=== PATIENT | female | born 2000 | race Hispanic/Latino ===

== ENCOUNTER 2020-01-26 10:24 | Observation (INO) | payer OTHER, MEDICAID ==
[~2020-01-26] VITALS: Ht 162.6 cm; Wt 83.9 kg
== END 2020-01-26 13:35 | disposition home or self-care (01) ==
LOC: LDH 10:24
PROVIDERS: ADMIT Obstetrics & Gynecology; ATTEND Obstetrics & Gynecology
DX: O36.8130 Decreased fetal movements, third trimester, not applicable or unspecified (principal); Z3A.28 28 weeks gestation of pregnancy
CPT/HCPCS: 76819; G0378 ×2

== ENCOUNTER 2020-04-04 08:33 | Inpatient (IN) | payer OTHER, MEDICAID ==
[~2020-04-04] VITALS: Ht 162.6 cm; Wt 85.3 kg
[2020-04-04] MEDS ORDERED: LACTATED RINGERS 1000ML 1,000 ML IV PRN (09:20)
[2020-04-04] MEDS ORDERED: LACTATED RINGERS 500 ML 500 ML IV PRN (09:30)
[2020-04-04] MEDS ORDERED: LIDOCAINE HCL 1% 20 ML VIAL INJ SCH (09:30)
[2020-04-04] MEDS ORDERED: ROPIVACAINE 0.2% 100ML VIAL 100 ML EP SCH (09:30)
[2020-04-04] MEDS ORDERED: NALOXONE HCL 0.4 MG/1 ML ML IV PRN (09:30)
[2020-04-04] MEDS ORDERED: PROMETHAZINE HCL 25 MG/ML 1ML AMPULE IM PRN (09:30)
[2020-04-04] MEDS ORDERED: EPHEDRINE SULFATE 50 MG/ML AMPULE IVP PRN (09:30)
[2020-04-04] MEDS ORDERED: MEPERIDINE-PF 50 MG/ML SYG IVP PRN (09:30)
[2020-04-04] MEDS ORDERED: OXYTOCIN-LR 20 UNITS/1000 ML 1,000 ML IV SCH ×3 (09:30→13:00)
[2020-04-04] MEDS ORDERED: OXYTOCIN 10 USP UNITS/ML 20 UNIT in LACTATED RINGERS 1000ML 1,000 ML IV SCH (09:30)
[2020-04-04] MEDS ORDERED: MEPERIDINE-PF 50 MG/ML SYG ONE (09:33)
[2020-04-04 09:37] LABS: HEMATOCRIT 39.1 % (36-48); MEAN CORPUSCULAR HEMOGLOBIN 29.7 pg (27.0-33.0); MEAN CORPUSCULAR VOLUME 89.9 fL (80-100); RED BLOOD CELL COUNT(AUTO) 4.35 MIL/uL (4.00-5.50); RED CELL DISTRIBUTION WIDTH 12.8 % (11.0-15.5); WHITE BLOOD COUNT (AUTO) 15.9 K/uL (4.8-10.8)
[2020-04-04] MEDS ORDERED: FENTANYL CITRATE PF 50 MCG/1 ML 2ML VIAL ONE (09:58)
[2020-04-04] MEDS ORDERED: AMPICILLIN 2GM+NS 100ML 100 ML IV SCH (11:28)
[2020-04-04] MEDS ORDERED: AMPICILLIN 1GM+NS 50ML 50 ML IV SCH (11:30)
[2020-04-04] MEDS ORDERED: MEASLES/MUMPS/RUBELLA VACCINE, LIVE 0.5 ML/VIAL SQ PRN (13:00)
[2020-04-04] MEDS ORDERED: LANOLIN 30GM OINTMENT TP PRN (13:00)
[2020-04-04] MEDS ORDERED: ACETAMINOPHEN-CODEINE 300/30MG TAB PO PRN (13:00)
[2020-04-04] MEDS ORDERED: BENZOCAINE/LANOLIN/ALOE VERA 60 ML AEROSOL TP PRN (13:00)
[2020-04-04] MEDS ORDERED: WITCH HAZEL 1 PAD TP PRN (13:00)
[2020-04-04] MEDS ORDERED: DIPH,PERTUSS(ACELL),TET VAC/PF 0.5 ML VIAL IM PRN (13:00)
[2020-04-04] MEDS ORDERED: ACETAMINOPHEN 325 MG TAB PO PRN (13:00)
[2020-04-04 14:57] VITALS: BP 98/75
[2020-04-04] MEDS ORDERED: PREN-154 PO (15:05)
[2020-04-04 19:38] VITALS: BP 112/78
[2020-04-04] MEDS: DOCUSATE SODIUM 100 MG CAP PO SCH (20:31)
[2020-04-04] MEDS: IBUPROFEN 600 MG TABLET PO PRN (20:41)
[2020-04-04 23:28] VITALS: BP 111/58
[2020-04-05 03:29] VITALS: BP 106/64
[2020-04-05 07:18] LABS: HEPATITIS Bs ANTIGEN SCREEN P Negative (Negative)
[2020-04-05 07:34] LABS: HEMATOCRIT 33.5 % (36-48); MEAN CORPUSCULAR HEMOGLOBIN 29.3 pg (27.0-33.0); MEAN CORPUSCULAR HGB CONC 32.2 g/dL (32.0-36.0); RED BLOOD CELL COUNT(AUTO) 3.68 MIL/uL (4.00-5.50); RED CELL DISTRIBUTION WIDTH 13.1 % (11.0-15.5); WHITE BLOOD COUNT (AUTO) 13.7 K/uL (4.8-10.8)
[2020-04-05 08:06] VITALS: BP 119/80
[2020-04-05] MEDS: DOCUSATE SODIUM 100 MG CAP PO SCH (08:59)
[2020-04-05] MEDS: IBUPROFEN 600 MG TABLET PO PRN (09:00)
[2020-04-05 11:43] VITALS: BP 104/70
--- NOTE | 2020-04-05 12:45 | NUR ---
pt is discharged. verbal and written discharge instructions given, refer to discharge summary. informed of the follow up appointment, prescription given. informed to call the doctor for future concerns. pt voiced understanding to all things discussed. Addendum: 04/05/20 at 1303 by GAMALIEL KOHLER RN Amended: Links added.
--- NOTE | 2020-04-05 13:45 | NUR ---
pt is dismissed in stable condition, brought to private car via wheelchair. Addendum: 04/05/20 at 1458 by GAMALIEL KOHLER RN Amended: Links added.
== END 2020-04-05 13:45 | disposition home or self-care (01) | DRG 806 ==
LOC: EDH 08:33 → OBSVTOIN 08:34 → LDH 08:34 → WSH 14:55
PROVIDERS: ADMIT Obstetrics & Gynecology; ATTEND Obstetrics & Gynecology
PROC: 10E0XZZ Delivery of Products of Conception, External Approach (ICD-10-PCS; principal; 2020-04-04)
PROC: 3E0R3BZ Introduction of Anesthetic Agent into Spinal Canal, Percutaneous Approach (ICD-10-PCS; 2020-04-04)
PROC: 00HU33Z Insertion of Infusion Device into Spinal Canal, Percutaneous Approach (ICD-10-PCS; 2020-04-04)
PROC: 0UQMXZZ Repair Vulva, External Approach (ICD-10-PCS; 2020-04-04)
PROC: 0UQGXZZ Repair Vagina, External Approach (ICD-10-PCS; 2020-04-04)
PROC: 3E0234Z Introduction of Serum, Toxoid and Vaccine into Muscle, Percutaneous Approach (ICD-10-PCS; 2020-04-04)
PROC: 3E0134Z Introduction of Serum, Toxoid and Vaccine into Subcutaneous Tissue, Percutaneous Approach (ICD-10-PCS; 2020-04-04)
DX: O69.81X0 Labor and delivery complicated by cord around neck, without compression, not applicable or unspecified (principal); O71.4 Obstetric high vaginal laceration alone; Z37.0 Single live birth; Z3A.38 38 weeks gestation of pregnancy; Z23 Encounter for immunization; O71.82 Other specified trauma to perineum and vulva
CPT/HCPCS: 36415; 80053; 81001; 84550; 85025; 85027; 85384; 85610; 85730; 86592; 86850; 86900; 86901; 87340; 90715; A4314; A4606; G0378; J2175; J2590; J2795; J3010; J7120

== ENCOUNTER 2023-05-17 11:41 | Emergency (ER) | payer MEDICAID, OTHER ==
[~2023-05-17] VITALS: Ht 162.6 cm; Wt 81.6 kg
[2023-05-17 12:07] LABS: APPEARANCE,URINE CLEAR (CLEAR); BILIRUBIN,URINE NEGATIVE (NEGATIVE); COLOR,URINE YELLOW (YELLOW); GLUCOSE, URINE (UA) NEGATIVE (NEGATIVE); KETONES,URINE NEGATIVE (NEGATIVE); LEUKOCYTE ESTERASE ,URINE 500 Leu/uL (NEGATIVE); NITRATE,URINE NEGATIVE (NEGATIVE); OCCULT BLOOD,URINE NEGATIVE (NEGATIVE); PROTEIN,URINE 20 mg/dL (NEGATIVE)
[2023-05-17 12:11] LABS: ADD UA MICROSCOPIC YES
[2023-05-17 12:18] LABS: BACTERIA,URINE RARE /HPF (None Seen); MUCUS,URINE RARE LPF (None Seen); RBC,URINE 0-1 /HPF (0-1); SQUAMOUS EPITHELIAL CELL,UR FEW /HPF (0-2)
[2023-05-17 12:40] LABS: CREATININE 0.6 mg/dL (0.5-1.5); POTASSIUM 3.7 mmol/L (3.5-5.1)
[2023-05-17 12:45] LABS: ALBUMIN 2.7 g/dL (3.5-5.0); BILIRUBIN,TOTAL 0.2 mg/dL (0.2-1.0); TOTAL PROTEIN, SERUM 6.8 g/dL (6.0-8.3)
[2023-05-17 13:15] LABS: BASOPHILS # (AUTO) 0.02 K/uL (0.00-0.20); BASOPHILS % (AUTO) 0.2 % (0.0-5.0); EOSINOPHILS # (AUTO) 0.07 K/uL (0.00-0.70); EOSINOPHILS % (AUTO) 0.7 % (0.0-8.0); HEMATOCRIT 31.1 % (36-48); IMMATURE GRANULOCYTE ABSOLUTE 0.05 K/uL (0-1); LYMPHOCYTES # (AUTO) 1.7 K/uL (1.0-4.8); LYMPHOCYTES % (AUTO) 16.7 % (21.0-51.0); MEAN CORPUSCULAR HEMOGLOBIN 30.3 pg (27.0-33.0); MEAN CORPUSCULAR HGB CONC 33.8 g/dL (32.0-36.0); MEAN CORPUSCULAR VOLUME 89.6 fL (79-99); MONOCYTES # (AUTO) 0.6 K/uL (0.1-1.0); MONOCYTES % (AUTO) 5.6 % (3.0-13.0); NEUTROPHILS # (AUTO) 7.9 K/uL (1.8-7.7); NEUTROPHILS % (AUTO) 76.3 % (40.0-77.0); PLATELET COUNT (AUTO) 160 K/uL (130-400); RED BLOOD CELL COUNT(AUTO) 3.47 MIL/uL (4.00-5.50); RED CELL DISTRIBUTION WIDTH 12.9 % (11.0-15.5); WHITE BLOOD COUNT (AUTO) 10.4 K/uL (4.8-10.8)
[2023-05-17] MEDS ORDERED: MACR100 PO (13:46)
[2023-05-17 13:53] VITALS: BP 122/78; PULSE 64; RESP 18; O2SAT 100
== END 2023-05-17 14:40 | disposition home or self-care (01) ==
LOC: EDH 11:41
DX: O26.41 Herpes gestationis, first trimester (principal); N39.0 Urinary tract infection, site not specified; Z3A.14 14 weeks gestation of pregnancy
CPT/HCPCS: 36415; 76805; 80053; 81001; 85025; 86900; 86901; 87088

== ENCOUNTER 2023-07-30 18:53 | Emergency (ER) | payer MEDICAID ==
[~2023-07-30] VITALS: Ht 162.6 cm; Wt 83.5 kg
[~2023-07-30 18:53] MED LIST: MACR100 PO
[2023-07-30 21:59] VITALS: BP 110/72; PULSE 99; RESP 18; O2SAT 100
== END 2023-07-30 22:02 | disposition home or self-care (01) ==
LOC: EDH 18:53
DX: O26.891 Other specified pregnancy related conditions, first trimester (principal); R51.9 Headache, unspecified; Z3A.01 Less than 8 weeks gestation of pregnancy; Z90.49 Acquired absence of other specified parts of digestive tract
CPT/HCPCS: 99282